=== PATIENT | male | born 1950 | race Caucasian/White ===

== ENCOUNTER 2020-05-05 08:05 | Outpatient (CLI) | payer MEDICARE, SELFPAY ==
--- NOTE | 2020-05-05 08:35 | ECG_ITS ---
[facility] Test Date: 2020-05-05 Pat Name: Michel Nguyen Department: Room: Gender: Male Oracle Architect: Zully Avalos : 1950 Requested By: Marco Antonio Mathis Order Number: [id number] Vida MD: Lizandro Perez M.D. Interpretive Statements NAME OF STUDY: EXERCISE SESTAMIBI STRESS TEST INDICATION: Chest Pain, EXERCISE TREADMILL STRESS ORDERING PHYSICIAN: Unknown CLINICAL INFORMATION: Unknown INTERPRETATION: 1. The patient exercised for 4 minutes and 5 seconds on a Curly protocol. He reached a maximum heart rate of 134 beats per minute, which is 90 % of his maximum predicted heart rate. The test was stopped due to fatigue and achieving the desired heart rate. 2. The baseline electrocardiogram reveals sinus rhythm with lack of R waves from leads V1 through V4. 3. With exercise, there were no ST segment changes to suggest ischemia, however there was significant baseline artifact. 4. The resting blood pressure was 139/105. The maximum blood pressure was 253/107. 5. At maximum exercise, the patient achieved 6.1 METs with a rate pressure product of 309. 6. The patient experienced no chest pain during the examination. Multiform PVCs developed. CONCLUSION: 1. Probably normal exercise treadmill test. 2. Below average exercise capacity for age. 3. Hypertensive blood pressure response to exercise. 4. Nuclear imaging to follow Electronically Signed On 05-05-2020 13:33:01 CDT by Lizandro Perez M.D. [email or web address]
--- NOTE | 2020-05-05 08:35 | NMCV_ITS ---
NM don perf SPECT r/s* [id number] Michel Nguyen Age: 70 Gender: M : 1950 Exam Date: 05/05/2020 09:21 Ordering Phys: Marco Antonio Mathis PA-C XX Technologist: CHRISTIANO Bell Exam Location: [facility] Indications: SOB STRESS TEST Please see separate stress test report in [facility] for full findings IMAGE PROTOCOL Rest/Stress 1 Lexiscan Day Radiopharmaceutical Dose (mCi) Administration Site Administered by Rest: Tc-99m 10.8 IV CHRISTIANO Bell Sestamibi Stress:Tc-99m 32.6 IV CHRISTIANO Bell Sestamibi Rest: 05-May-2020 60 Discovery 630 Stress: 05-May-2020 45 Discovery 630 0.4mg Lexiscan. Images obtained in supine and prone position. SPECT RESULTS Technical Quality: Good Raw Data Analysis: Normal Image Corrections: No attenuation or motion correction applied Summed Stress Score: 0 Summed Rest Score: 0 Summed Difference Score: 0 PERFUSION FINDINGS SPECT images demonstrate homogeneous tracer distribution throughout the myocardium. FUNCTIONAL RESULTS (calculated via Gated SPECT) Stress Image LV EF (%): 54 Stress EDV (mL):112 TID: 1.01 Stress ESV (mL):51 FUNCTIONAL FINDINGS: The left ventricle is normal in size. Transient Ischemia Dilatation of 1. There is normal left ventricular systolic function. The left ventricular ejection fraction is normal with a value of 54%. There is normal left ventricular wall thickening. Normal end-diastolic and end-systolic volumes. IMPRESSIONS 1. Myocardial perfusion imaging is normal. 2. Overall left ventricular systolic function is normal without regional wall motion abnormalities. 3. The left ventricular ejection fraction is normal with a value of 54%. 4. Scan indicates low risk for cardiac events. Christina Armstrong MD (Electronically Signed) Final Date: 05 May 2020 13:46 S
[2020-05-05 08:36] VITALS: BMI 36.6
[2020-05-05 10:22] VITALS: BP 180/100; PULSE 90
== END 2020-05-05 08:06 | disposition home or self-care (01) ==
PROVIDERS: PCP Physician Assistant Medical; Visit Provider Physician Assistant Medical
DX: R06.02 Shortness of breath (principal); R07.89 Other chest pain; I25.10 Atherosclerotic heart disease of native coronary artery without angina pectoris
CPT/HCPCS: 78452; 93017; A9500